=== PATIENT | female | born 1975 | race Caucasian/White ===

== ENCOUNTER 2017-05-23 06:34 | Outpatient (CLI) | payer OTHER | END 2017-05-23 14:24 | disposition home or self-care (01) | LOC: MAMO-SONO 06:34 | DX: Z12.31 Encounter for screening mammogram for malignant neoplasm of breast (principal) ==

== ENCOUNTER 2017-07-21 13:00 | Emergency (ER) | payer OTHER ==
[~2017-07-21] VITALS: Ht 160 cm; Wt 88.9 kg
== END 2017-07-21 20:09 | disposition home or self-care (01) ==
LOC: ER 13:00
DX: K52.9 Noninfective gastroenteritis and colitis, unspecified (principal)

== ENCOUNTER 2017-08-31 12:04 | Outpatient (CLI) | payer OTHER | END 2017-08-31 12:30 | disposition home or self-care (01) | LOC: NUCLEAR 12:04 | DX: I87.2 Venous insufficiency (chronic) (peripheral) (principal) ==

== ENCOUNTER 2017-09-01 11:11 | Outpatient (CLI) | payer OTHER | END 2017-09-01 11:27 | disposition home or self-care (01) | LOC: LAB 11:11 | DX: M06.89 Other specified rheumatoid arthritis, multiple sites (principal); M32.8 Other forms of systemic lupus erythematosus; K75.9 Inflammatory liver disease, unspecified ==

== ENCOUNTER 2017-09-14 08:41 | Outpatient (CLI) | payer OTHER | END 2017-09-14 09:32 | disposition home or self-care (01) | LOC: NUCLEAR 08:41 | DX: M25.50 Pain in unspecified joint (principal) | CPT/HCPCS: 78306; A9503 ==

== ENCOUNTER → 2018-06-29 | Outpatient (CLI) | payer OTHER | END | disposition home or self-care (01) | LOC: RAD 12:25 | DX: M54.5 Low back pain (principal) ==

== ENCOUNTER 2019-05-14 11:45 | Outpatient (CLI) | payer OTHER | END 2019-05-14 11:55 | disposition home or self-care (01) | LOC: EKG 11:45 | DX: R00.2 Palpitations (principal) ==

== ENCOUNTER 2019-05-15 08:17 | Outpatient (CLI) | payer OTHER | END 2019-05-15 08:47 | disposition home or self-care (01) | LOC: LAB 08:17 | DX: E78.49 Other hyperlipidemia (principal); Z00.00 Encounter for general adult medical examination without abnormal findings; E55.9 Vitamin D deficiency, unspecified; R00.2 Palpitations; R42 Dizziness and giddiness; R51 Headache; N39.0 Urinary tract infection, site not specified ==

== ENCOUNTER 2019-05-15 09:07 | Outpatient (CLI) | payer OTHER | END 2019-05-15 14:41 | disposition home or self-care (01) | LOC: RAD 09:07 | DX: R06.02 Shortness of breath (principal) ==

== ENCOUNTER → 2020-01-07 | Outpatient (CLI) | payer OTHER | END | disposition home or self-care (01) | LOC: MAMO-SONO 06:37 | PROVIDERS: ATTEND Specialist | DX: Z12.31 Encounter for screening mammogram for malignant neoplasm of breast (principal); N60.11 Diffuse cystic mastopathy of right breast; N60.12 Diffuse cystic mastopathy of left breast ==

== ENCOUNTER 2020-05-06 08:10 | Outpatient (CLI) | payer OTHER | END 2020-05-06 08:13 | disposition home or self-care (01) | LOC: NUCLEAR 08:10 | PROVIDERS: ATTEND General Practice | DX: R07.89 Other chest pain (principal) ==

== ENCOUNTER 2020-05-11 08:09 | Outpatient (CLI) | payer OTHER | END 2020-05-11 08:13 | disposition home or self-care (01) | LOC: NUCLEAR 08:09 | PROVIDERS: ATTEND General Practice | DX: I87.2 Venous insufficiency (chronic) (peripheral) (principal); M79.604 Pain in right leg; M79.605 Pain in left leg; R60.0 Localized edema ==

== ENCOUNTER → 2020-08-04 | Outpatient (CLI) | payer OTHER | END | disposition home or self-care (01) | LOC: RAD 07:01 | DX: M54.5 Low back pain (principal); M54.17 Radiculopathy, lumbosacral region ==

== ENCOUNTER 2021-03-15 07:09 | Outpatient (CLI) | payer OTHER | END 2021-03-15 07:20 | disposition home or self-care (01) | LOC: MRI 07:09 | PROVIDERS: ATTEND Specialist | DX: G93.89 Other specified disorders of brain (principal) | CPT/HCPCS: 70551 ==

== ENCOUNTER 2021-11-17 06:27 | Outpatient (CLI) | payer OTHER | END 2021-11-17 07:15 | disposition home or self-care (01) | LOC: MAMO-SONO 06:27 | PROVIDERS: ATTEND General Practice | DX: N64.4 Mastodynia (principal); Z12.31 Encounter for screening mammogram for malignant neoplasm of breast ==

== ENCOUNTER 2021-12-08 06:23 | Outpatient (CLI) | payer OTHER | END 2021-12-08 15:08 | disposition home or self-care (01) | LOC: RAD 06:23 | PROVIDERS: ATTEND General Practice | DX: M79.671 Pain in right foot (principal) ==

== ENCOUNTER 2022-04-20 06:34 | Outpatient (CLI) | payer OTHER | END 2022-04-20 07:00 | disposition home or self-care (01) | LOC: SONOGRAMA 06:34 | DX: R10.2 Pelvic and perineal pain (principal) ==

== ENCOUNTER 2022-10-21 06:37 | Outpatient (CLI) | payer OTHER | END 2022-10-21 07:10 | disposition home or self-care (01) | LOC: SONOGRAMA 06:37 | DX: R10.13 Epigastric pain (principal) ==

== ENCOUNTER 2022-12-08 07:44 | Outpatient (CLI) | payer OTHER | END 2022-12-08 08:10 | disposition home or self-care (01) | LOC: MAMO-SONO 07:44 | PROVIDERS: ATTEND Surgery | DX: Z12.31 Encounter for screening mammogram for malignant neoplasm of breast (principal); N60.11 Diffuse cystic mastopathy of right breast ==

== ENCOUNTER 2023-03-15 08:57 | Outpatient (CLI) | payer OTHER | END 2023-03-15 14:54 | disposition home or self-care (01) | LOC: MRI 08:57 | DX: R05.9 Cough, unspecified (principal); R42 Dizziness and giddiness | CPT/HCPCS: 70551 ==

== ENCOUNTER → 2024-06-24 | Outpatient (CLI) | payer OTHER | END | disposition home or self-care (01) | LOC: MRI 06:43 | PROVIDERS: ATTEND General Practice | DX: M25.562 Pain in left knee (principal) | CPT/HCPCS: 73721 ==

== ENCOUNTER → 2024-07-29 | Outpatient (CLI) | payer OTHER | END | disposition home or self-care (01) | LOC: MAMO-SONO 06:49 | DX: N94.9 Unspecified condition associated with female genital organs and menstrual cycle (principal) ==

== ENCOUNTER → 2024-08-05 | Outpatient (CLI) | payer OTHER | END | disposition home or self-care (01) | LOC: MAMO-SONO 07-30 06:43 | DX: N64.4 Mastodynia (principal) ==